=== PATIENT | male | born 1930 | race Caucasian/White ===

== ENCOUNTER → 2017-02-27 | Outpatient (CLI) | payer MEDICARE, BC ==
--- NOTE | 2017-02-27 16:11 | RADIOLOGY REPORT (SQ) ---
EXAM DESCRIPTION: MRI RT LOWER JOINT WITHOUT COMPLETED DATE/TIME: 02/27/2017 2:33 pm REASON FOR STUDY: RIGHT HIP PAIN (M25.511) M25.551 PAIN IN RIGHT HIP COMPARISON: None. TECHNIQUE: RIGHThip images acquired and stored on PACS. Multiplanar images to include fat sensitive sequences as T1, fluid sensitive sequences as T2/STIR and gradient echo sequences. Large FOV fat and fluid sensitive sequences include pelvis and opposite hip. LIMITATIONS: None. FINDINGS: BONE CORTEX AND MARROW: No generalized marrow replacement. No occult fracture. No worriso me bone lesions. RIGHT HIP: FEMORAL HEAD: No occult fracture. No osteophytes or subchondral cysts. Normal sphericity of femoral h ead/neck junction. No acetabular dysplasia. Small subcortical cyst right femoral neck coronal image 10. No significant effusion. ACETABULUM: No acetabular dysplasia. No subchondral cysts. LABRUM: No loss of cartilage or delamination. Labrum is intact. No paralabral cysts. TROCHANTER: Trace trochanteric bursal effusion, coronal series 4, image 12. No edema/fluid at the in sertions of the gluteus medius and gluteus minimus. LEFT HIP: Limited evaluation. No worrisome bone lesions. No significant effusion. PELVIS, LOWER LUMBAR SPINE, SACROILIAC JOINTS: PELVIS : No insufficiency/stress fractures. No significant degenerative changes. Sacroiliac joints normal. L SPINE: High-grade disc space loss of height with vertebral body endplate sclerosis at L2-3, L3-4, a nd L4-5 MUSCLES AND SOFT TISSUES: Adductors and piriformis normal. Abductors and greater trochanteric bursa n ormal without edema or fluid. Iliopsoas bursa without fluid. Hamstring attachments without edema or t ear. PELVIC SOFT TISSUES: Enlarged prostate with prominent transitional zone likely from BPH SCIATIC NERVE: Identified, without masses or abnormal signal. OTHER: No other significant finding. IMPRESSION: NO SIGNIFICANT FINDING IN THE RIGHT HIP. TECHNICAL DOCUMENTATION: JOB ID: [id number] [employer]- All Rights Reserved
== END ==
LOC: RAD 13:01
PROVIDERS: ATTEND Physician Assistant
DX: M25.551 Pain in right hip (principal)

== ENCOUNTER → 2017-05-12 | Outpatient (CLI) | payer MEDICARE, BC ==
--- NOTE | 2017-05-12 11:20 | RADIOLOGY REPORT (SQ) ---
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 Coronal T2/ HASTE imaging. LIMITATIONS: Motion. FINDINGS: VISUALIZED UPPER ABDOMEN: Limited evaluation. No acute or suspicious findings suggested. SEGMENTATION: No transitional anatomy. The lowest well-developed disc space is labeled L5-S1. ALIGNMENT: Convex right scoliosis. Grade 1 anterolisthesis L5 relative to L4. VERTEBRAE: Intact. BONE MARROW: Reactive edema L2- 3 and L3-4 endplates. DISC SIGNAL: Desiccation multiple levels. POSTERIOR ELEMENTS: Intact. HARDWARE: None in the spine. CORD AND CONUS: Normal in size and signal intensity. Conus at the appropriate level. SOFT TISSUES: No aortic aneurysm seen. No bulky retroperitoneal adenopathy or mass. No paraspinal mas s or fluid. L1-L2: Flattening of the ventral margin of thecal sac due to disc osteophyte complex. Moderate neura l foraminal narrowing. L2-L3: Ventral and dorsal nerve root contact due to disc osteophyte complex, ligament thickening and facet arthropathy. Moderate neural foraminal narrowing. L3-L4: Ventral and dorsal nerve root contact due disc osteophyte complex and facet arthropathy. Mode rate neural foraminal narrowing. Narrowing of the lateral recesses. L4-L5: Ventral and dorsal nerve root contact due to disc osteophyte complex and facet arthropathy. N arrowing of the lateral recesses. Extruded fragment to right of midline contacts the transiting righ t L5 nerve root in the canal. L5-S1: Ventral and dorsal impression on thecal sac due to disc bulge and facet arthropathy. Mild lef t and moderate right neural foraminal narrowing. LOWER THORACIC: Incompletely imaged. No stenosis seen. SACRUM: Visualized upper sacrum intact. OTHER: No other significant findings. IMPRESSION: Spondylosis, scoliosis and facet arthropathy. Mild -moderate spinal stenosis. Small di sc extrusion at L5 to right of midline. TECHNICAL DOCUMENTATION: JOB ID: [id number] [employer]- All Rights Reserved
== END ==
LOC: RAD 09:42
PROVIDERS: ATTEND Specialist
DX: M54.16 Radiculopathy, lumbar region (principal)
CPT/HCPCS: 72148